=== PATIENT | female | born 1980 | race Caucasian/White ===

== ENCOUNTER 2018-01-01 10:14 | Emergency (ER) | payer OTHER, MEDICAID, SELFPAY ==
[2018-01-01 10:15] VITALS: BP 136/92; PULSE 82; RESP 18; TEMP 36.9; O2SAT 100; BMI 26.4
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
[2018-01-01 12:40] VITALS: BP 116/70; PULSE 66; RESP 20; TEMP 36.7; O2SAT 99
== END 2018-01-01 12:40 | disposition home or self-care (01) ==
PROVIDERS: Emergency Provider Emergency Medicine; Family Provider Emergency Medicine; PCP Emergency Medicine
DX: S20.212A Contusion of left front wall of thorax, initial encounter (principal); S16.1XXA Strain of muscle, fascia and tendon at neck level, initial encounter; S80.10XA Contusion of unspecified lower leg, initial encounter; S60.222A Contusion of left hand, initial encounter; V49.88XA Car occupant (driver) (passenger) injured in other specified transport accidents, initial encounter; Y92.488 Other paved roadways as the place of occurrence of the external cause; F17.210 Nicotine dependence, cigarettes, uncomplicated; F41.9 Anxiety disorder, unspecified
CPT/HCPCS: 71250; 72125; 73130; 73590; 99282

== ENCOUNTER 2018-02-04 16:10 | Emergency (ER) | payer OTHER, SELFPAY ==
[2018-02-04 16:12] VITALS: BP 139/69; PULSE 75; RESP 18; TEMP 36.6; O2SAT 100; BMI 25.8
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
--- NOTE | 2018-02-04 17:11 | XR_ITS ---
XR chest 2V HISTORY: ITS.REASON: worsening cough and wheezing p/ chest contusion ORDERING PHYSICIAN: Patrizia Coronel PATIENT AGE: 38 years COMPARISON: None available FINDINGS: The cardiomediastinal silhouette and pulmonary vascularity are within normal limits. The lungs are clear without infiltrates, suspicious nodules, or pleural effusions. No acute bony abnormalities. IMPRESSION: Negative chest, no acute finding
[2018-02-04 18:16] VITALS: BP 139/69; PULSE 75; RESP 18; TEMP 36.6; O2SAT 100
[2018-02-04 18:33] VITALS: PULSE 83; PULSE 89
== END 2018-02-04 18:20 | disposition home or self-care (01) ==
PROVIDERS: Emergency Provider Nurse Practitioner Family; Family Provider Emergency Medicine; PCP Emergency Medicine
DX: S20.212A Contusion of left front wall of thorax, initial encounter (principal); S20.211A Contusion of right front wall of thorax, initial encounter; F17.210 Nicotine dependence, cigarettes, uncomplicated; F41.8 Other specified anxiety disorders; V49.9XXA Car occupant (driver) (passenger) injured in unspecified traffic accident, initial encounter; Y92.488 Other paved roadways as the place of occurrence of the external cause
CPT/HCPCS: 71046; 96372; 99201

== ENCOUNTER → 2018-04-02 14:48 | Outpatient (CLI) | payer OTHER, MEDICAID, SELFPAY ==
--- NOTE | 2018-04-02 14:49 | US_ITS ---
US transvaginal HISTORY: ITS.REASON: US T/V- Heavy bleeding ORDERING PHYSICIAN: Yamini Major MD PATIENT AGE: 38 years Comparison: None FINDINGS: The uterus is 9 x 4 x 6 cm with a combined endometrial thickness of 14 mm. An oval area of increased echogenicity is present within the uterus measuring 12 x 10 by 5 mm consistent with a polyp.. There is a 13 mm nabothian cyst. Left ovary is 3 x 1.7 x 1.8 cm and contains a 17 mm cyst. The right ovary is 2.3 x 2.5 cm and contains a 8 mm cyst. No cul-de-sac fluid evident. IMPRESSION: Mildly bulky uterus with thickened endometrium and probable small endometrial polyp. Small bilateral ovarian cysts
== END ==
PROVIDERS: Family Provider Emergency Medicine; PCP Emergency Medicine; Visit Provider Obstetrics & Gynecology
DX: N93.9 Abnormal uterine and vaginal bleeding, unspecified (principal)
CPT/HCPCS: 76830

== ENCOUNTER → 2018-09-01 15:17 | Outpatient (CLI) | payer OTHER, MEDICAID, SELFPAY ==
--- NOTE | 2018-09-01 15:19 | US_ITS ---
US breast LT complete COMPARISON: None HISTORY: Palpable fullness left axillary region TECHNIQUE: Targeted ultrasound left axilla FINDINGS: Rather diffuse homogeneous echogenicity is seen in the area of palpable fullness consistent with normal appearing subcutaneous tissue. There is a normal-appearing node measuring 1.1 x 0.9 cm. There is no abnormal cystic or solid mass identified. IMPRESSION: Unremarkable targeted ultrasound left axilla
== END ==
PROVIDERS: Family Provider Emergency Medicine; PCP Emergency Medicine; Visit Provider Surgery
DX: L81.9 Disorder of pigmentation, unspecified (principal)
CPT/HCPCS: 76641

== ENCOUNTER 2019-02-27 11:58 | Emergency (ER) | payer OTHER, SELFPAY ==
[2019-02-27 12:10] VITALS: BP 146/92; PULSE 87; RESP 20; TEMP 36.9; O2SAT 98; BMI 27.3
--- NOTE | 2019-02-27 12:20 | HMH.EDUTC ---
[facility] [place] Clinical Impression: Breast pain, left, Rheumatoid arthritis flare Shingles Qualifiers: Herpes zoster complications: without complications Qualified Code(s): B02.9 - Zoster without complications Disposition: Home, Self-Care Condition on Discharge: Good Instructions: DI for Shingles Prescriptions: methylPREDNISolone [Medrol] 4 mg PO DIRECTED 6 Days #1 tab.ds.pk Valacyclovir HCl [Valtrex] 1,000 mg PO BID 10 Days #20 tab Referrals: Kyle Lao MD [Primary Care Provider] - Time of Disposition: 12:26 Medical Decision Making - Armin Inquiry Pt receiving controlled substance: No Vital Signs: 02/27/19 12:10 Temperature 98.4 F Temperature Source Oral Pulse Rate [Right Brachial] 87 Respiratory Rate 20 Blood Pressure [Right Arm] 146/92 H Blood Pressure Mean [Right Arm] 110 Blood Pressure Source [Right Arm] Automatic Cuff Blood Pressure Position [Right Arm] Sitting 02 Sat by Pulse Oximetry 98 Oxygen Delivery Method Room Air Orders (Tests/Meds): ED MEDICATIONS Discontinued Medications Generic Name Dose Route Start Last Admin Trade Name Marti PRN Reason Stop Dose Admin Ketorolac Tromethamine 60 mg 02/27/19 12:18 Toradol 60mg/2ml Vial IM 02/27/19 12:19 ONCE ONE [facility] [place] - General Stated complaint: RA attack on left side. swollen left breast Time Seen by Provider: 02/27/19 12:20 Mode of Arrival: Family Vehicle Source of Information: Patient Limitations: No Limitations Description of Symptoms (Recalled from Triage Doc. by RN): C/OP LEFT BREAST SWOLLEN AND BURNING AND PAINFUL TO TOUCH WITH RA FLARE IN LEFT HAND SINCE THIS AM. HAS NEVER HAD THESES SYMPTOMS WITH BREAST BEFORE HEENT Symptoms (Recalled from RN notes): No Resp Symptoms (Recalled from RN notes): No Skin Symptoms (Recalled from RN notes): Yes MS Symptoms (Recalled from RN notes): No Functional Status (Recalled from RN notes): N/A - History of Present Illness Provider Complaint: Patient has history RA. Woke up this am with pain in left arm and hand, which is fairly normal for an RA flare. Mostly resolved with ibuprofen, but has persistent pain in left breast. Left breast feels swollen, hot, and like it is burning from the inside out. Currently on no maintenance meds for RA. Onset (ago): hour(s) (8) Location: chest, left Quality: burning Consistency: constant Relieving factors: none Exacerbating factors: none Associated symptoms: denies other symptoms Treatments prior to arrival: NSAID - Related Data Home Medications Medication Instructions Recorded Confirmed buprenorphine 8 mg-naloxone 2 mg 2 film SUBLINGUAL Q24H 01/01/18 01/22/19 sublingual film Previous Rx's Medication Instructions Recorded ibuprofen 600 mg tablet 600 mg PO TID PRN #90 tab 12/02/18 buspirone 10 mg tablet 10 mg PO BID #180 tab 12/17/18 Valacyclovir HCl [Valtrex] 1,000 mg PO BID 10 Days #20 tab 02/27/19 methylPREDNISolone [Medrol] 4 mg PO DIRECTED 6 Days #1 02/27/19 tab.ds.pk Allergies Allergy/AdvReac Type Severity Reaction Status Date / Time No Known Allergies Allergy Verified 01/22/19 13:14 - Worker's Comp Is this a Worker's Comp case?: No [facility] History - Hepatitis A Screen Drug use history?: No High risk sexual behaviors?: No History of sexually transmitted infection?: No Currently employed?: No Childcare worker?: No Do you have indoor plumbing?: Yes Do you have electricity?: Yes Attestation statement:: This patient has been screened for Hepatitis A risk factors. I have reviewed the patient's past medical history: Yes Medical History: Reports:: Anxiety, Chronic Obstructive Pulmonary Disease (COPD), Depression, Hepatitis, Migraine Denies:: Cancer, Diabetes Mellitus Type 1, Diabetes Mellitus Type 2, Hyperlipidemia, Hypertension, Internal Pacemaker, Lung Disease, MRSA, Seizures Other Medical History: Reports: Anemia, Arthritis. Denies: Blood Transfusion Reaction Comment: owen BLAIR
--- NOTE | 2019-02-27 12:23 | ED_ITS ---
[facility] [place] Disposition Clinical Impression: Breast pain, left, Rheumatoid arthritis flare Shingles Qualifiers: Herpes zoster complications: without complications Qualified Code(s): B02.9 - Zoster without complications Disposition: Home, Self-Care Condition on Discharge: Good Instructions: DI for Shingles Prescriptions: methylPREDNISolone [Medrol] 4 mg PO DIRECTED 6 Days #1 tab.ds.pk Valacyclovir HCl [Valtrex] 1,000 mg PO BID 10 Days #20 tab Referrals: Kyle Lao MD [Primary Care Provider] - Time of Disposition: 12:26 Medical Decision Making - Armin Inquiry Pt receiving controlled substance: No Vital Signs: 02/27/19 12:10 Temperature 98.4 F Temperature Source Oral Pulse Rate [Right Brachial] 87 Respiratory Rate 20 Blood Pressure [Right Arm] 146/92 H Blood Pressure Mean [Right Arm] 110 Blood Pressure Source [Right Arm] Automatic Cuff Blood Pressure Position [Right Arm] Sitting 02 Sat by Pulse Oximetry 98 Oxygen Delivery Method Room Air Orders (Tests/Meds): ED MEDICATIONS Discontinued Medications Generic Name Dose Route Start Last Admin Trade Name Marti PRN Reason Stop Dose Admin Ketorolac Tromethamine 60 mg 02/27/19 12:18 Toradol 60mg/2ml Vial IM 02/27/19 12:19 ONCE ONE [facility] [place] HPI - General Stated complaint: RA attack on left side. swollen left breast Time Seen by Provider: 02/27/19 12:20 Mode of Arrival: Family Vehicle Source of Information: Patient Limitations: No Limitations Description of Symptoms (Recalled from Triage Doc. by RN): C/OP LEFT BREAST SWOLLEN AND BURNING AND PAINFUL TO TOUCH WITH RA FLARE IN LEFT HAND SINCE THIS AM. HAS NEVER HAD THESES SYMPTOMS WITH BREAST BEFORE HEENT Symptoms (Recalled from RN notes): No Resp Symptoms (Recalled from RN notes): No Skin Symptoms (Recalled from RN notes): Yes MS Symptoms (Recalled from RN notes): No Functional Status (Recalled from RN notes): N/A - History of Present Illness Provider Complaint: Patient has history RA. Woke up this am with pain in left arm and hand, which is fairly normal for an RA flare. Mostly resolved with ibuprofen, but has persistent pain in left breast. Left breast feels swollen, hot, and like it is burning from the inside out. Currently on no maintenance meds for RA. Onset (ago): hour(s) (8) Location: chest, left Quality: burning Consistency: constant Relieving factors: none Exacerbating factors: none Associated symptoms: denies other symptoms Treatments prior to arrival: NSAID - Related Data Home Medications Medication Instructions Recorded Confirmed buprenorphine 8 mg-naloxone 2 mg 2 film SUBLINGUAL Q24H 01/01/18 01/22/19 sublingual film Previous Rx's Medication Instructions Recorded ibuprofen 600 mg tablet 600 mg PO TID PRN #90 tab 12/02/18 buspirone 10 mg tablet 10 mg PO BID #180 tab 12/17/18 Valacyclovir HCl [Valtrex] 1,000 mg PO BID 10 Days #20 tab 02/27/19 methylPREDNISolone [Medrol] 4 mg PO DIRECTED 6 Days #1 02/27/19 tab.ds.pk Allergies Allergy/AdvReac Type Severity Reaction Status Date / Time No Known Allergies Aller
[2019-02-27 12:34] VITALS: BP 146/92; PULSE 87; RESP 20; TEMP 36.9; O2SAT 98
== END 2019-02-27 12:37 | disposition home or self-care (01) ==
PROVIDERS: Emergency Provider Physician Assistant; PCP Emergency Medicine
DX: N64.4 Mastodynia (principal); B02.9 Zoster without complications; F41.8 Other specified anxiety disorders; J44.9 Chronic obstructive pulmonary disease, unspecified; F17.210 Nicotine dependence, cigarettes, uncomplicated
CPT/HCPCS: 96372; 99201

== ENCOUNTER → 2019-04-09 14:22 | Outpatient (CLI) | payer OTHER, SELFPAY ==
--- NOTE | 2019-04-09 14:23 | CA_ITS ---
INDICATIONS FOR THE TEST: PROCEDURE: 2-D M-mode and color Doppler study INDICATIONS FOR THE TEST: Chest pain COPD+ Heart Murmur Tobacco Smoking+ Palpitations Fatigue Syncope Edema+ Hypertension Diabetes Mellitus Rheumatic Fever SOB WALSH Obesity Hyperlipidemia Family History HD Additional History HEPATITIS PATIENT INFORMATION HEIGHT: 63 WEIGHT:161 GENDER: Female B/P:122/80 2-D/M-MODE INTERPRETATION: 2-D MEASUREMENTS OBSERVED VALUES IN CMS Right Ventricular Dimension (RVDd) 1.3 Interventricular Septum (Thickness)(IVsd) 0.9 Left Ventricular Internal Dimensions(LVIDd) 4.9 Left Ventricular Posterior Wall (Thickness)(LVPWd) 0.8 Aortic Root 2.4 Aortic Cusp Separation 1.7 Left Atrial Dimensions (LAD) 3.4 2D 1. Left atrium is normal size, left ventricle is normal size, there is no concentric left ventricular hypertrophy, visually estimated ejection fraction of 55% with no regional wall motion abnormality. 2. The right atrium and right ventricle are normal size and contractility. 3. The aortic, mitral and tricuspid valvular grossly normal. 4. The pulmonic valve is poorly visualized. 5. No significant pericardial effusion noted. DOPPLER INTERROGATION: Doppler interrogation of the aortic, mitral and tricuspid valvular presence of mild mitral and tricuspid regurgitation, tricuspid regurgitation jet velocity is inadequate for calculation of the right ventricular systolic pressure, diastolic parameters are within normal range. CONCLUSION: 1. Normal left ventricular size, preserved left ventricular systolic function, visually estimated ejection fraction 55% with no regional wall motion abnormality, diastolic parameters are within normal range. 2. Mild mitral and tricuspid regurgitation 3. No significant pericardial effusion noted.
== END ==
PROVIDERS: PCP Emergency Medicine; Visit Provider Physician Assistant
DX: R06.00 Dyspnea, unspecified (principal); R60.9 Edema, unspecified; J44.9 Chronic obstructive pulmonary disease, unspecified; F17.200 Nicotine dependence, unspecified, uncomplicated; K75.9 Inflammatory liver disease, unspecified
CPT/HCPCS: 93306

== ENCOUNTER → 2019-09-14 14:11 | Outpatient (CLI) | payer OTHER, SELFPAY ==
--- NOTE | 2019-09-14 14:12 | MM_ITS ---
PROCEDURE: MM DIG SCREENING MAMM BI W/CAD CLINICAL INDICATION: screening There is no personal or family history of breast cancer COMPARISON: None, this is baseline exam TECHNIQUE: Standard CC and MLO images were obtained. R2 CAD reviewed. FINDINGS: Prominent heterogenic fibroglandular densities are seen in both breasts. The findings of bilateral and symmetrical. There is no suspicious lesion and no suspicious microcalcifications. IMPRESSION: Moderate diffuse breast density with no suspicious lesions seen BI-RAD Category: 1 Negative FOLLOW-UP: 1YR 1 Year Follow-up (A letter has been sent to the patient regarding results of the study.) Dictated by: Dr. Cholo Gongora MD 09/15/2019 15:[address] Cholo Gongora MD in [place] 09/15/2019 15:21
== END ==
PROVIDERS: PCP Emergency Medicine; Visit Provider Emergency Medicine
DX: Z12.31 Encounter for screening mammogram for malignant neoplasm of breast (principal)
CPT/HCPCS: 77067

== ENCOUNTER → 2019-12-31 16:37 | Outpatient (CLI) | payer OTHER, SELFPAY ==
--- NOTE | 2019-12-31 16:41 | XR_ITS ---
PROCEDURE: XR HIP LT 2-3V W/PELVIS CLINICAL INDICATION: hip pain COMPARISON: No exams were available for comparison FINDINGS: There is no acute fracture dislocation or destructive lesion. Mild osteoarthritis is seen at the left hip joint. IMPRESSION: No acute findings. Osteoarthritis left hip. Dictated by: Guerrero Beavers 01/01/2020 08:44 Electronically signed by Guerrero Beavers in [place] 01/01/2020 08:44
== END ==
PROVIDERS: PCP Emergency Medicine; Visit Provider Nurse Practitioner Family
DX: M25.552 Pain in left hip (principal)
CPT/HCPCS: 73502

== ENCOUNTER → 2020-01-11 08:40 | Outpatient (POV) | payer OTHER, SELFPAY ==
[2020-01-11 08:52] VITALS: BP 126/57; PULSE 93; RESP 18; O2SAT 98; BMI 26.5
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
== END ==
PROVIDERS: PCP Emergency Medicine; Visit Provider Clinical Nurse Specialist Family Health
DX: M46.1 Sacroiliitis, not elsewhere classified (principal)
CPT/HCPCS: 99202

== ENCOUNTER 2020-04-01 09:27 | Day surgery (SDC) | payer OTHER, SELFPAY ==
[2020-04-01 09:39] VITALS: BP 111/57; PULSE 75; RESP 18; TEMP 36.2; O2SAT 98; BMI 27.3
[2020-04-01 10:37] VITALS: BP 129/76; PULSE 75; RESP 18; O2SAT 99
[2020-04-01 10:38] VITALS: BP 130/75; PULSE 85; RESP 18; O2SAT 98
--- NOTE | 2020-04-01 10:46 | HMH.PMPROC ---
- Procedure Date: 04/01/20 Time: 10:46 Anesthesiologist:: Johnathon Kenyon MD Complications:: None Pre-procedure Diagnosis:: Sacroiliitis Post-procedure Diagnosis:: Same Indications for Procedure:: This patient is a pleasant 40-year-old white female who we are treating for bilateral hip pain. She is tender over both SI joints. She has positive SI joint compression test bilaterally. She has a positive Kedar test bilaterally. She has a positive Amanda's test bilaterally. We will do bilateral SI joint injections under fluoroscopy today to see if this will help with her pain symptoms. Procedure Details:: B/L SI joint injection under fluoroscopy Informed consent was obtained and the risks and benefits of the procedure was explained to the patient. The patient was taken to the procedure room and placed prone on the procedure table. The patient was prepped using ChloraPrep. The skin and subcutaneous tissues overlying the SI joints were anesthetized using lidocaine. I placed a 22-gauge needle first in the left SI joint and second in the right SI joint. Needle placement was confirmed with dye. After this we injected 5 mL bupivacaine 0.25% and Depo-Medrol 40 mg into each SI joint. Patient tolerated the procedure well with no complication. Plan and Disposition:: We will follow-up with her in 2 weeks. Will reevaluate her symptoms at that time.
[2020-04-01 10:55] VITALS: BP 136/83; PULSE 59; RESP 20; O2SAT 98
== END 2020-04-01 10:55 | disposition home or self-care (01) ==
LOC: SC.PAINP 09:27
PROVIDERS: PCP Emergency Medicine; Visit Provider Anesthesiology
DX: M46.1 Sacroiliitis, not elsewhere classified (principal); Z72.0 Tobacco use; J44.9 Chronic obstructive pulmonary disease, unspecified; F32.9 Major depressive disorder, single episode, unspecified; F41.9 Anxiety disorder, unspecified; D64.9 Anemia, unspecified
CPT/HCPCS: 27096; G0260; J1030; Q9966

== ENCOUNTER → 2020-04-18 15:18 | Outpatient (POV) | payer OTHER, SELFPAY ==
[2020-04-18 15:30] VITALS: BP 147/71; PULSE 65; RESP 20; O2SAT 100; BMI 26.5
--- NOTE | 2020-04-18 15:40 | HMH.PAINSOAP ---
[facility] Pain Management SOAP Note Subjective:: Patient is a very pleasant 40-year-old white female who we are treating for bilateral hip pain and SI joint pain. She has a SI joint compression test bilaterally positive she has a positive Kedar test bilaterally and a positive Amanda's test bilaterally. She is still following up after bilateral SI joint injections under fluoroscopy and has done extremely well with this. She rates 90% relief of her symptomology. She would like to repeat this to see if she can get any additional efficacy. I do believe that this would be beneficial given her symptomology. ROS General: no recent weight change, no fever, no sleep disturbances Respiratory: no cough, no shortness of air, no recurring pulmonary infections Cardiovascular/Peripheral Vascular: No chest pain, No palpitations, no edema, no shortness of breath. Gastrointestinal: no new onset incontinence, normal bowel movements reported Genitourinary: no new onset incontinence Musculoskeletal: SI joint pain Psychiatric: normal mood/ affect Neurological: [denies new onset weakness in extremities], [denies new onset balance issues] Objective:: Physical Exam General: Alert and oriented x3, no acute distress, pleasant and cooperative, [on room air] Lungs: Resps E/U, Symmetrical chest expansion, Eyes: PERRL Musculoskeletal: Flexion and extension of lumbar spine somewhat guarded secondary to pain, deep tendon reflexes normal, strength in upper and lower extremities [5/5], antalgic gait noted Neurological: speech clear, pen tender equal, no gross sensory deficits Assessment:: Sacroiliitis Plan:: We will plan on bilateral SI joint injections for the patient. Patient's been instructed to call the office if she has any issues prior to her next appointment. Dr. Kenyon has reviewed this note and agrees with this plan of care. This note was dictated using voice recognition software and may contain errors or omissions [facility] History I have reviewed the patient's past medical history: Yes Medical History: Reports:: Anxiety, Chronic Obstructive Pulmonary Disease (COPD), Depression, Hepatitis, Migraine Denies:: Cancer, Diabetes Mellitus Type 1, Diabetes Mellitus Type 2, Hyperlipidemia, Hypertension, Internal Pacemaker, Lung Disease, MRSA, Seizures *Have you ever received a pneumonia vaccine?: No *Have you received a flu vaccine this season?: Yes Other Medical History: Reports: Anemia, Arthritis. Denies: Blood Transfusion Reaction Other Surgeries: Yes: Tubal Ligation, Other (LEEP). No: Pacemaker Amputation: No Fractures: No - *Social History Smoking Status: Current every day smoker Tobacco Type: cigarettes # Packs/Day (cigarettes): 1 #Yrs smoked (if former smoker): 26 Alcohol Intake: never Substance Use Type: former substance user, painkillers *Occupational Status:: employed Housing: house Household Members: significant other *Travel in the last 8 weeks: None - Psychiatric History Pschychiatric History:: Reports:: Anxiety, Depression Family Hx:: Unable to obtain RETAIL MANAGEMENT KEYHOLDER history: Tubal Ligation, Spontaneous , Additional RETAIL MANAGEMENT KEYHOLDER History, dysfunctional uterine bleed, Abnormal Uterine Bleeding
== END ==
PROVIDERS: PCP Emergency Medicine; Visit Provider Clinical Nurse Specialist Family Health
DX: M46.1 Sacroiliitis, not elsewhere classified (principal)
CPT/HCPCS: 99212

== ENCOUNTER 2020-05-03 13:23 | Day surgery (SDC) | payer OTHER, SELFPAY ==
[2020-05-03 13:42] VITALS: BP 113/80; PULSE 80; RESP 18; TEMP 36.2; O2SAT 99; BMI 26.5
[2020-05-03 14:04] VITALS: BP 125/85; PULSE 82; RESP 18; O2SAT 98
[2020-05-03 14:05] VITALS: BP 125/85; PULSE 85; RESP 18; O2SAT 99
[2020-05-03 14:08] VITALS: BP 129/79; PULSE 72; RESP 18; O2SAT 99
--- NOTE | 2020-05-03 14:08 | P.PCN_ITS ---
- Procedure Date: 05/03/20 Time: 14:08 Anesthesiologist:: Hailee Lynn APRN Complications:: None Pre-procedure Diagnosis:: Sacroiliitis Post-procedure Diagnosis:: Same Indications for Procedure:: Patient is a very pleasant 40-year-old white female who we are treating for bilateral hip pain and SI joint pain. She is status post 1 SI joint injection and is doing extremely well. She would like to repeat this to see if she can get any additional efficacy. She rates her pain today 4 out of 10 and she does have a positive Kedar test Amanda's test and SI joint compression test bi laterally. Physical Exam General: Alert and oriented x3, no acute distress, pleasant and cooperative, [on room air] Lungs: Resps E/U, Symmetrical chest expansion, Eyes: PERRL Musculoskeletal: Flexion and extension of lumbar spine somewhat guarded secondary to pain, deep tendon reflexes normal, strength in upper and lower extremities [5/5], slightly antalgic gait noted Neurological: speech clear, non categorical preschool teacher equal, no gross sensory deficits Procedure Details:: Informed consent was obtained and the risks and benefits of the procedure were explained to the patient. Patient was taken to the procedure room. Patient was placed prone on the procedure table. The left hip was prepped using ChloraPrep as a cleansing solution. The skin and subcutaneous tissues were anesthetized using lidocaine. Using fluoroscopic guidance I placed a 22-gauge spinal needle into the inferior aspect of the left SI joint. After this I injected 5 mL bupivacaine 0.25% and Depo-Medrol 40 mg into the left SI joint. This was then repeated on the right side. The patient tolerated the procedure well with no complication. Plan and Disposition:: I will see the patient back in the office in 2 to 3 weeks reassess her symptoms at that time she has been instructed to call the office if she has any issues prior to her next appointment. Dr. Kenyon has reviewed this note and agrees with this plan of care. This note was dictated using voice recognition software and may contain errors or omissions
== END 2020-05-03 14:10 | disposition home or self-care (01) ==
LOC: SC.PAINP 13:24
PROVIDERS: PCP Emergency Medicine; Visit Provider Clinical Nurse Specialist Family Health
DX: M46.1 Sacroiliitis, not elsewhere classified (principal); Z72.0 Tobacco use; J44.9 Chronic obstructive pulmonary disease, unspecified; K59.00 Constipation, unspecified; G43.909 Migraine, unspecified, not intractable, without status migrainosus; F41.9 Anxiety disorder, unspecified; B94.8 Sequelae of other specified infectious and parasitic diseases; D64.9 Anemia, unspecified; Z79.899 Other long term (current) drug therapy
CPT/HCPCS: 27096; G0260; J1030

== ENCOUNTER → 2020-08-02 16:33 | Outpatient (CLI) | payer OTHER, SELFPAY ==
[2020-08-04 09:29] LABS: Testosterone,Total 6 ng/dL (8-48)
[2020-08-04 11:51] LABS: Estradiol 41.1 pg/mL (.); FSH 21.3 mIU/mL (.); LH 12.4 mIU/mL (.)
== END ==
PROVIDERS: Visit Provider Obstetrics & Gynecology
DX: N91.2 Amenorrhea, unspecified (principal); R68.82 Decreased libido; R23.2 Flushing
CPT/HCPCS: 36415; 82670; 83001; 83002; 84403

== ENCOUNTER 2020-08-08 14:12 | Day surgery (SDC) | payer OTHER, SELFPAY ==
[2020-08-08 14:18] VITALS: BP 126/76; PULSE 79; RESP 18; TEMP 36.7; BMI 27.3
[2020-08-08 14:39] VITALS: BP 132/85; BP 138/85; PULSE 85; RESP 18; O2SAT 98
--- NOTE | 2020-08-08 14:42 | HMH.PMPROC ---
- Procedure Date: 08/08/20 Time: 14:42 Anesthesiologist:: Hailee Lynn APRN Complications:: None Pre-procedure Diagnosis:: Sacroiliitis Post-procedure Diagnosis:: Same Indications for Procedure:: Is a very pleasant 40-year-old white female who presents today for bilateral SI joint injections. Patient gets 80% relief with her SI joint injections for 3 to 4 months. Patient is here today to repeat this. She has a positive Kedar Amanda's and SI joint compression test bilaterally. Physical Exam General: Alert and oriented x3, no acute distress, pleasant and cooperative, [on room air] Lungs: Resps E/U, Symmetrical chest expansion, Eyes: PERRL Musculoskeletal: Flexion and extension of lumbar spine somewhat guarded secondary to pain, deep tendon reflexes normal, strength in upper and lower extremities [5/5], slightly antalgic gait noted Neurological: speech clear, experimental preflight mechanic equal, no gross sensory deficits Procedure Details:: Informed consent was obtained and the risks and benefits of the procedure were explained to the patient. Patient was taken to the procedure room. Patient was placed prone on the procedure table. The left hip was prepped using ChloraPrep as a cleansing solution. The skin and subcutaneous tissues were anesthetized using lidocaine. Using fluoroscopic guidance I placed a 22-gauge spinal needle into the inferior aspect of the left SI joint. After this I injected 5 mL bupivacaine 0.25% and Depo-Medrol 40 mg into the left SI joint. It was then repeated on the right side. The patient tolerated the procedure well with no complication. Plan and Disposition:: We will see the patient back in several weeks reassess her symptoms at that time she has been instructed to call the office if she has any issues prior to next appointment. Dr. Kenyon has reviewed this note and agrees with this plan of care. This note was dictated using voice recognition software and may contain errors or omissions
[2020-08-08 14:45] VITALS: BP 140/76; PULSE 69; RESP 18; O2SAT 99
== END 2020-08-08 14:47 | disposition home or self-care (01) ==
LOC: SC.PAINP 14:13
PROVIDERS: PCP Emergency Medicine; Visit Provider Clinical Nurse Specialist Family Health
DX: M46.1 Sacroiliitis, not elsewhere classified (principal); Z72.0 Tobacco use; J44.9 Chronic obstructive pulmonary disease, unspecified; F41.9 Anxiety disorder, unspecified; F32.9 Major depressive disorder, single episode, unspecified; Z98.51 Tubal ligation status; Z98.890 Other specified postprocedural states; Z79.899 Other long term (current) drug therapy
CPT/HCPCS: 27096; G0260; J1030; Q9966

== ENCOUNTER → 2020-10-17 10:55 | Outpatient (CLI) | payer OTHER, SELFPAY ==
[2020-10-17 11:26] LABS: Adenovirus,PCR Not Detected (NotDetected); Bordetella Pertussis Not Detected (NotDetected); Chlamydophila Pneumoniae, PCR Not Detected (NotDetected); Coronavirus 19, PCR Not Detected (NotDetected); Coronavirus 229E Not Detected (NotDetected); Coronavirus NL63 Not Detected (NotDetected); Coronavirus OC43 Not Detected (NotDetected); Coronovirus HKU1,PCR Not Detected (NotDetected); Human Metapneumovirus Not Detected (NotDetected); Influenza A, PCR Not Detected (NotDetected); Influenza AH1, 2009 Not Detected (NotDetected); Influenza AH1, PCR Not Detected (NotDetected); Influenza AH3,PCR Not Detected (NotDetected); Influenza B, PCR Not Detected (NotDetected); Mycoplasma Pneumoniae, PCR Not Detected (NotDetected); Parainfluenza 1, PCR Not Detected (NotDetected); Parainfluenza 2, PCR Not Detected (NotDetected); Parainfluenza 3, PCR Not Detected (NotDetected); Parainfluenza 4, PCR Not Detected (NotDetected); Respiratory Syncytial Virus Not Detected (NotDetected); Rhinovirus/Enterovirus Not Detected (NotDetected)
== END ==
PROVIDERS: PCP Emergency Medicine; Visit Provider Emergency Medicine
DX: Z20.828 Contact with and (suspected) exposure to other viral communicable diseases (principal)
CPT/HCPCS: 87581; 87633; 87798

== ENCOUNTER 2020-10-24 14:01 | Day surgery (SDC) | payer OTHER, SELFPAY ==
[2020-10-24 14:26] VITALS: BP 111/69; PULSE 69; RESP 18; TEMP 36.2; O2SAT 97; BMI 26.5
[2020-10-24 15:13] VITALS: BP 125/74; PULSE 74; RESP 18; O2SAT 98
[2020-10-24 15:14] VITALS: BP 125/74; PULSE 76; RESP 18; O2SAT 98
--- NOTE | 2020-10-24 15:18 | HMH.PMPROC ---
- Procedure Date: 10/24/20 Time: 15:18 Anesthesiologist:: Hailee Lynn APRN Complications:: None Pre-procedure Diagnosis:: Sacroiliitis Post-procedure Diagnosis:: Sacroiliitis Indications for Procedure:: Patient is a pleasant 40-year-old white female who presents today for bilateral SI joint injections. Patient gets 80% relief for up to 3 months with her injections. Patient has a positive Kedar test Amanda's test SI joint compression test and distraction test bilaterally. Patient does well with these injections. We will move forward with a repeat today. Procedure Details:: Informed consent was obtained and the risks and benefits of the procedure were explained to the patient. Patient was taken to the procedure room. Patient was placed prone on the procedure table. The [right] hip was prepped using ChloraPrep as a cleansing solution. The skin and subcutaneous tissues were anesthetized using lidocaine. Using fluoroscopic guidance I placed a 22-gauge spinal needle into the inferior aspect of the [right] SI joint. After this I injected 5 mL bupivacaine 0.25% and Depo-Medrol 40 mg into the [right] SI joint. We then repeated this on the left side. the patient tolerated the procedure well with no complication. Plan and Disposition:: Patient back in several weeks reassess her symptoms at that time she has been instructed to call the office if she has any issues prior to her next appointment. Dr. Kenyon has reviewed this note and agrees with this plan of care. This note was dictated using voice recognition software and may contain errors or omissions
[2020-10-24 15:26] VITALS: BP 115/72; PULSE 74; RESP 18; O2SAT 98
== END 2020-10-24 15:27 | disposition home or self-care (01) ==
LOC: SC.PAINP 14:04
PROVIDERS: PCP Emergency Medicine; Visit Provider Clinical Nurse Specialist Family Health
DX: M46.1 Sacroiliitis, not elsewhere classified (principal); J44.9 Chronic obstructive pulmonary disease, unspecified; F41.9 Anxiety disorder, unspecified; F32.9 Major depressive disorder, single episode, unspecified; G43.909 Migraine, unspecified, not intractable, without status migrainosus; Z72.0 Tobacco use; Z87.19 Personal history of other diseases of the digestive system
CPT/HCPCS: 27096; G0260; J1030

== ENCOUNTER → 2020-11-29 13:01 | Outpatient (CLI) | payer OTHER, SELFPAY ==
--- NOTE | 2020-11-29 13:25 | XR_ITS ---
PROCEDURE: XR CERVICAL SPINE CLINICAL INDICATION: cervicothoracic pain COMPARISON: No exams were available for comparison FINDINGS: No fracture or dislocation. No lytic or blastic change. There is normal mineralization. The joint spaces are well-preserved. No significant degenerative/arthritic changes. No erosive changes evident. The neural foramina are patent. Other findings:There is mild prominence of the transverse processes of C7 on both sides which may function as small cervical ribs.There is normal alignment. No fracture or dislocation. No lytic or blastic change. IMPRESSION: Prominent transverse processes of C7/small cervical ribs otherwise negative cervical Dictated by: Matty Lamas MD 11/29/2020 14:06 Matty Lamas MD in [place] 11/29/2020 14:06
--- NOTE | 2020-11-29 13:25 | XR_ITS ---
PROCEDURE: XR THORACIC SPINE 2V CLINICAL INDICATION: cervicothoracic pain COMPARISON: No exams were available for comparison FINDINGS: No fracture or dislocation. No lytic or blastic change. There is normal mineralization. Normal alignment. There is minimal degenerative disc disease at T9-T10 Other findings:None. IMPRESSION: Minimal degenerative changes thoracic spine, no acute finding Dictated by: Matty Lamas MD 11/29/2020 14:08 Matty Lamas MD in [place] 11/29/2020 14:08
[2020-11-29 14:33] LABS: Basophils # 0.1 K/mm3 (0-0.2); Basophils % 1.1 % (0.1-2.0); Eosinophils # 0.1 K/mm3 (0.0-0.4); Eosinophils % 1.5 % (0.1-12.0); Hematocrit 47.3 % (37.0-47.0); Hemoglobin 15.8 g/dL (12.2-16.2); Lymphocytes # 2.1 K/mm3 (0.7-4.5); Lymphocytes % 30.2 % (10-50); Mean Corpuscular HGB Conc 33.3 g/dL (31.8-35.4); Mean Corpuscular Volume 95.9 fl (81-99); Mean Platelet Volume 10.2 fl (7.4-10.4); Monocytes # 0.5 K/mm3 (0.1-1.0); Monocytes % 6.9 % (1.7-9.3); Neutrophils # 4.3 K/mm3 (1.8-7.8); Neutrophils % 60.2 % (37.0-80.0); Platelet Count 237 K/mm3 (142-424); Red Blood Count 4.93 M/mm3 (4.20-5.40); Red Cell Distribution Width 13.2 % (11.5-17.5); White Blood Count 7.1 K/mm3 (4.8-10.8)
[2020-11-29 15:01] LABS: Alanine Aminotransferase 15 U/L (12-78); Albumin Level 4.7 g/dl (3.5-5.0); Albumin/Globulin Ratio 1.7 (1.1-1.8); Alkaline Phosphatase 70 U/L (38-126); Aspartate Amino Transferase 25 U/L (14-36); Bilirubin,Total 0.3 mg/dl (0.2-1.3); Blood Urea Nitrogen 6 mg/dl (7-17); Calcium 9.5 mg/dl (8.4-10.2); Carbon Dioxide 32 mmol/L (22.0-30.0); Chloride 102 mmol/L (98-107); Estimated Glomerular Filt Rate 79 ml/min (>60); GFR (African American) 96 ML/MIN (>60); Globulin 2.7 g/dL (1.3-3.2); Glucose 77 mg/dl (74-100); Sodium 143 mmol/L (136-145); Total Protein,Serum 7.4 g/dl (6.3-8.2)
[2020-11-29 16:47] LABS: Thyroid Stimulating Hormone 1.52 uIU/mL (0.465-4.68)
[2020-11-29 17:21] LABS: Vitamin B12 381 pg/mL (239-931)
[2020-11-29 17:26] LABS: Folate 6.09 ng/mL
== END ==
PROVIDERS: PCP Emergency Medicine; Visit Provider Specialist
DX: M54.2 Cervicalgia (principal); M54.6 Pain in thoracic spine; G43.009 Migraine without aura, not intractable, without status migrainosus; R41.3 Other amnesia; G47.8 Other sleep disorders; R40.0 Somnolence; Z68.26 Body mass index [BMI] 26.0-26.9, adult; Z72.0 Tobacco use
CPT/HCPCS: 36415; 72052; 72070; 80053; 82607; 82746; 84443; 85025; 94762

== ENCOUNTER → 2020-12-07 12:48 | Outpatient (CLI) | payer OTHER, SELFPAY ==
--- NOTE | 2020-12-07 12:48 | MR_ITS ---
PROCEDURE: MR HEAD/BRAIN WO CON CLINICAL INDICATION: eval for ENDODONTIST abnormality HEADACHES, INSOMNIA, POSTERIOR NECK PAIN. SYMPTOMS X1 MONTH COMPARISON: No exams were available for comparison TECHNIQUE: Routine multiplanar multi echo sequences are performed without gadolinium enhancement. FINDINGS: No midline shift, mass effect, intracranial hemorrhage, hydrocephalus, or acute infarction is evident. The cerebellopontine angles, cerebellum, and brainstem have an unremarkable appearance. There are few scattered T2 white matter hyperintensities noted. In the region of the supra vermian cistern extending into the ambient cistern region superior and posterior to the jorge and at the region the pineal gland there are dilated serpiginous vessels consistent with an arteriovenous malformation. Tiny salt and pepper type foci of hypointensity associated with this. This is consistent with an arteriovenous malformation. The AVM measures 2.2 cm cephalad caudad and 1.9 cm AP. It appears that this AVM enters into the vein of Jerome and into the straight sinus. The vein of Jerome is enlarged.. No evidence of acute intracranial hemorrhage. This lesion is along the posterior aspect of the 3rd ventricle and cerebral aqueduct. The lateral ventricles and 3rd ventricle is slightly prominent suggesting that this abnormality could be causing some hydrocephalus. There is impingement upon the quadrigeminal plate on the left. 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 There is some compression upon the posterior aspect of the 3rd ventricle and the cerebral aqueduct with some mild dilatation of the 3rd and lateral ventricles. Neuro surgical/neuro interventional consult suggested. Dictated by: Matty Lamas MD 12/08/2020 11:32 Matty Lamas MD in [place] 12/08/2020 11:32
== END ==
PROVIDERS: PCP Emergency Medicine; Visit Provider Specialist
DX: G43.009 Migraine without aura, not intractable, without status migrainosus (principal); G47.8 Other sleep disorders; M54.2 Cervicalgia; M54.6 Pain in thoracic spine; R40.0 Somnolence; R41.3 Other amnesia; Z68.26 Body mass index [BMI] 26.0-26.9, adult; Z72.0 Tobacco use
CPT/HCPCS: 70551

== ENCOUNTER → 2020-12-20 17:55 | Outpatient (CLI) | payer OTHER, SELFPAY | PROVIDERS: PCP Emergency Medicine; Visit Provider Emergency Medicine | DX: Z20.822 Contact with and (suspected) exposure to COVID-19 (principal) | CPT/HCPCS: U0003 ==

== ENCOUNTER → 2021-02-01 13:06 | Outpatient (POV) | payer OTHER, SELFPAY | DX: Z00.00 Encounter for general adult medical examination without abnormal findings (principal) ==

== ENCOUNTER 2021-06-26 14:06 | Day surgery (SDC) | payer OTHER, SELFPAY ==
[2021-06-26 14:13] VITALS: BP 154/79; PULSE 74; RESP 18; TEMP 37.1; O2SAT 98; BMI 25.4
--- NOTE | 2021-06-26 14:32 | HMH.PMPROC ---
- Procedure Date: 06/26/21 Time: 14:32 Anesthesiologist:: Mariel Solorzano APRN Complications:: None Pre-procedure Diagnosis:: Sacroiliitis Post-procedure Diagnosis:: Same Indications for Procedure:: She is a 41-year-old white female who presents today for sacroiliitis. She is having pain to her bilateral SI joint joints with with a positive Amanda's, compression, distraction test. Patient has had these injections in the past and does get up to 80% relief for greater than 2 to 3 weeks. She is tender to palpation to both SI joints today. We will perform bilateral SI joint injections on the patient to see if she gets relief. She rates her pain a 7 out of 10. Patient generally gets about 4 months of relief. She was unable to recently undergo injective therapy due to getting radiation. Risks and benefits of the procedure have been explained to the patient. Patient would like to proceed with the procedure. Possible side effects of corticosteroids have been discussed with the patient. Physical exam General: Alert and oriented x3, no acute distress, pleasant and cooperative, [on room air] Lungs: Respirations even and unlabored, symmetrical chest expansion Eyes: PERRL Musculoskeletal: Flexion and extension of lumbar [spine] somewhat guarded secondary to pain, strength in upper and lower extremities [5/5], [antalgic gait noted] positive Amanda's test, positive compression test, positive distraction test Neurological: Speech clear, [rail operations controller equal], no gross sensory deficit Procedure Details:: Informed consent was obtained and the risk and benefits of the procedure were explained to the patient. The patient was taken to the procedure room and noninvasive monitors were placed including noninvasive blood pressure cuff and pulse oximeter. The patient was placed prone on the procedure table. The right side joint was cleansed using chlorhexidine as a cleansing solution. C-arm fluoroscopy was used to view the right SI joint. The skin and subcutaneous tissue were anesthetized using lidocaine 1.5% and 25-gauge needle. After this a 22-gauge spinal needle was inserted under fluoroscopic guidance into the inferior aspect of the right SI joint. Omnipaque dye was injected and good spread was seen throughout the joint. After this approximately 5 mils of bupivacaine 0.25% and Depo-Medrol 40 mg were incrementally injected into the sacroiliac joint. We then proceeded to the left SI joint. The left SI joint was cleansed using chlorhexidine as a cleansing solution. C?arm fluoroscopy was used to view the left SI joint. The skin and subcutaneous tissue were anesthetized using 1.5% and 25-gauge needle. After this, a 22-gauge spinal needle was inserted under fluoroscopic guidance into the inferior aspect of the left SI joint. Omnipaque dye was injected and good spread was seen throughout the joint. After this, approximately 5 mL of bupivacaine 0.25% and Depo-Medrol 40 mg were incrementally injected into the left SI joint. the patient tolerated the procedure well with no complications. Plan and Disposition:: We will plan to see the patient back in the clinic in 2 weeks. Patient has been instructed to contact the clinic with any concerns before the next appointment. Dr. Kenyon has reviewed this note and agrees with this plan of care. This note was dictated using voice recognition software and make contain errors or omissions.
[2021-06-26 14:40] VITALS: BP 142/76; PULSE 88; RESP 18; O2SAT 98
[2021-06-26 14:41] VITALS: BP 121/87; PULSE 90; RESP 18; O2SAT 97
[2021-06-26 14:50] VITALS: BP 113/62; PULSE 74; RESP 18; O2SAT 98
== END 2021-06-26 14:51 | disposition home or self-care (01) ==
LOC: SC.PAINP 14:08
PROVIDERS: PCP Emergency Medicine; Visit Provider Clinical Nurse Specialist Family Health
DX: M46.1 Sacroiliitis, not elsewhere classified (principal); G43.909 Migraine, unspecified, not intractable, without status migrainosus; J44.9 Chronic obstructive pulmonary disease, unspecified; M19.90 Unspecified osteoarthritis, unspecified site; F32.9 Major depressive disorder, single episode, unspecified; F41.9 Anxiety disorder, unspecified; D64.9 Anemia, unspecified; Z79.899 Other long term (current) drug therapy
CPT/HCPCS: 27096; G0260; J1030; Q9966

== ENCOUNTER → 2021-11-13 18:37 | Outpatient (CLI) | payer OTHER, SELFPAY | PROVIDERS: PCP Emergency Medicine; Visit Provider Nurse Practitioner | DX: U07.1 COVID-19 (principal) | CPT/HCPCS: C9803; U0003; U0005 ==

== ENCOUNTER → 2023-09-18 14:24 | Outpatient (POV) | payer OTHER, SELFPAY ==
--- NOTE | 2023-09-18 14:45 | EXP.PAIN.SOA ---
[facility] Pain Management SOAP Note Subjective:: Patient is a pleasant 43-year-old female who presents today for follow-up. We are currently treating the patient for chronic sacroiliitis. Today she rates her pain a 5 out of 10. Patient states her pain is all in her low back along her bilateral hips and denies any new trauma or injury from the last time we saw her. Patient does state this is a aching, throbbing sensation with pressure that does radiate into her groin even. Patient does state the pain interferes with her ability to perform activities of daily living such as cooking and cleaning. She has previously had multiple SI injections that did provide significant relief of upwards of 80% or more. Patient is interested in repeating this injections. Patient has tried and failed conservative therapy such as oral medications, heat and ice, topicals, physical therapy, at home stretching exercise for longer than 12 weeks. Patient is on Suboxone therapy from an outside provider. Her Armin has been reviewed and is appropriate. Review of Systems: General: No recent weight changes, no fever, no sleep disturbances Respiratory: No cough, no shortness of air, no recurring pulmonary infections Cardiovascular/peripheral vascular: No chest pain, no palpitations, no edema, no shortness of breath Gastrointestinal: No new onset incontinence, normal bowel movements reported Genitourinary: No new onset incontinence Musculoskeletal: Low back pain, bilateral hip pain Psychiatric: [Normal mood/affect] Neurological: [Denies weakness in extremities], [denies balance issues] Objective:: Physical Exam: General: Alert and oriented x3, no acute distress, pleasant and cooperative Lungs: Respirations even and unlabored, symmetrical chest expansion Eyes: PERRL Musculoskeletal: Flexion and extension of lumbar [spine] somewhat guarded secondary to pain, [antalgic gait noted] point tenderness along bilateral SIs with positive bilateral Amanda's, Nitza's, Gaenslen's, compression and distraction exam Neurological: Speech clear, no gross sensory deficit Assessment:: Low back pain, chronic sacroiliitis Plan:: Patient is experiencing worsening pain in her low back and bilateral hips. Patient had limited range of motion of her lumbar spine along with point tenderness at her bilateral SIs and a positive bilateral Amanda's, Nitza's, Gaenslen's, compression and distraction exam. I have discussed with the patient that she may benefit from bilateral SI injections. Risk and benefits were discussed with the patient and she would like to proceed forward with this plan of care. I have also discussed with the patient due to this being a chronic issue that in the future she may be a potential candidate for a SI fusion procedure. Educational handouts were given during today's visit and we will follow-up with this at later visits. Patient will be scheduled for bilateral SI injections. Patient has been instructed to contact the clinic with any concerns before the next appointment. Dr. Kenyon has reviewed this note and agrees with this plan of care. This note was dictated using voice recognition software and make contain errors or omissions. [facility] Disclaimer: The information contained in this section may have been updated after the patient was seen, as this information can be updated by other users. 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
[2023-09-18 15:34] VITALS: BP 113/75; PULSE 72; RESP 18; O2SAT 95; BMI 27.4
== END ==
PROVIDERS: PCP Emergency Medicine; Visit Provider Nurse Practitioner Family
DX: M46.1 Sacroiliitis, not elsewhere classified (principal); G89.29 Other chronic pain; M54.50 Low back pain, unspecified
CPT/HCPCS: 99212; G0463

== ENCOUNTER 2023-10-01 11:24 | Day surgery (SDC) | payer OTHER, SELFPAY ==
[2023-10-01 11:36] VITALS: BP 157/84; PULSE 67; RESP 16; TEMP 36.2; O2SAT 100; BMI 27.8
[2023-10-01 11:53] VITALS: BP 147/71; PULSE 84; O2SAT 100
[2023-10-01 11:54] VITALS: BP 147/71; PULSE 81; O2SAT 100
[2023-10-01 11:55] VITALS: BP 139/73; PULSE 64; RESP 16; O2SAT 100
--- NOTE | 2023-10-01 12:16 | P.PCN_ITS ---
Procedure Date: 10/01/23 Time: 12:00 Anesthesiologist:: Brett Leigh CRNA Complications:: None Pre-procedure Diagnosis:: Bilateral sacroiliitis. Post-procedure Diagnosis:: Same. Indications for Procedure:: Patient is a very pleasant 43-year-old female comes our clinic today for bilateral sacroiliac joint injections. Patient has had these in the past with significant improvement terms of her overall low lumbar back pain as well as bilateral posterior hip pain. Its been over 1 year since receiving the injections. She describes her low lumbar back pain as constant, dull, aching. Patient has difficulty transitioning from sitting to standing. She rates her pain 6/10. Procedure Details:: Procedure: Bilateral sacroiliac joint injections under fluoroscopy Informed consent was obtained and the risks and benefits of the procedure were explained to the patient.~ The patient was taken to the procedure room and noninvasive monitors were placed including a noninvasive blood pressure cuff and pulse oximeter.~ The patient was placed prone on the procedure table. Both hips were cleansed using Betadine as a cleansing solution. C-arm fluoroscopy was used to view the right sacroiliac joint.~ The skin and subcutaneous tissues were anesthetized using lidocaine 1.5% and a 25-gauge needle.~ After this, a 22-gauge spinal needle was inserted under fluoroscopic guidance into the inferior aspect of the right sacroiliac joint.~ Omnipaque dye was injected and good spread was seen throughout the joint.~ After this, approximately 5 mL of bupivacaine, 0.25% and Depo-Medrol, 40 mg was incrementally injected into the right sacroiliac joint. We then moved to the left sacroiliac joint.~ The skin and subcutaneous tissues were anesthetized using lidocaine 1.5% and a 25-gauge needle.~ After this, a 22- gauge spinal needle was inserted under fluoroscopic guidance into the inferior aspect of the left sacroiliac joint.~ Omnipaque dye was injected and good spread was seen throughout the joint. After this, approximately 5 mL of bupivacaine, 0.25% and Depo-Medrol, 40 mg was incrementally injected into the left sacroiliac joint.~ The patient tolerated the procedure well with no complications. The patient was observed in the Pain Clinic and then was discharged home neurologically intact. Plan and Disposition:: Patient was discharged without incident.
== END 2023-10-01 11:55 | disposition home or self-care (01) ==
PROVIDERS: PCP Emergency Medicine; Visit Provider Nurse Anesthetist, Certified Registered
DX: M46.1 Sacroiliitis, not elsewhere classified (principal)
CPT/HCPCS: 27096; G0260; J1040

== ENCOUNTER 2023-10-15 15:05 | Emergency (ER) | payer OTHER, SELFPAY ==
--- NOTE | 2023-10-15 15:12 | CT_ITS ---
FINAL REPORT CLINICAL HISTORY: history of AVM, dizziness FINDINGS: Axial images of the head were obtained without contrast. Coronal reformatted images were also obtained.This study was performed with techniques to keep radiation doses as low as reasonably achievable (ALARA). Individualized dose reduction techniques using automated exposure control or adjustment of mA and/or kV according to the patient's size were employed. There is no evidence of intracranial hemorrhage or mass. The ventricular size is within normal limits. There is no evidence of shift of the midline structures. No abnormal extra axial fluid collection is identified. No skull abnormality is seen on the bone window images. IMPRESSION: No acute intracranial abnormality. Reviewed, Interpreted and Dictated by Wilver Pretty III, MD Transcribed by Yvonne Walker Authenticated and [facility]
--- NOTE | 2023-10-15 15:12 | CT_ITS ---
FINAL REPORT TECHNIQUE: Thin section axial CT with IV contrast supplemented with multiplanar reconstruction under CT angiogram protocol. This study was performed with techniques to keep radiation doses as low as reasonably achievable (ALARA). Individualized dose reduction techniques using automated exposure control or adjustment of mA and/or kV according to the patient''s size were employed. NASCET criteria was utilized during interpretation. CLINICAL HISTORY: history of AVM, dizziness FINDINGS: Aortic arch: Arch shows no significant narrowing. Great vessel origins are widely patent. Right carotid: No significant stenosis is seen of the cervical common or internal carotid artery. Left carotid: No significant stenosis is seen of the cervical common or internal carotid artery. Vertebral: Right vertebral artery is dominant. No significant stenosis is present. IMPRESSION: No evidence of stenosis. Reviewed, Interpreted and Dictated by Wilver Pretty III, MD Transcribed by Yvonne Walker Authenticated and [facility]
--- NOTE | 2023-10-15 15:12 | CT_ITS ---
FINAL REPORT TECHNIQUE: Thin section axial CT with IV contrast supplemented with multiplanar reconstruction under CT angiogram protocol. 3-D reconstructions were performed. This study was performed with techniques to keep radiation doses as low as reasonably achievable (ALARA). Individualized dose reduction techniques using automated exposure control or adjustment of mA and/or kV according to the patient''s size were employed. CLINICAL HISTORY: history of AVM, dizziness FINDINGS: The distal vertebral, basilar and distal internal carotid arteries have an unremarkable appearance. No aneurysm is seen. Major intracranial vessels are patent without significant stenosis. There is an area of enhancement posterior to the 3rd ventricle measuring 12 x 12 mm of uncertain etiology, may represent AVM. IMPRESSION: Area of enhancement as above, may represent AVM. MRI with contrast may be helpful. Correlation with prior study is also recommended. Reviewed, Interpreted and Dictated by Wilver Pretty III, MD Transcribed by Yvonne Walker Authenticated and [facility]
--- NOTE | 2023-10-15 15:13 | HMH.EDGENADL ---
Discharge Plan Disposition Patient Disposition: Home, Self-Care Prescriptions Prescriptions: No Action rimegepant 75 mg tablet,disintegrating 75 mg PO .COMPLEX Qty: 8 11RF Rx Instructions: 75 mg under the tongue no more then every 24 hours; max 8 per month buprenorphine-naloxone [Suboxone] 8-2 mg film 2 film SUBLINGUAL Q24H amitriptyline 10 mg tablet 20 mg PO HS 90 Days Qty: 180 3RF buspirone 10 mg tablet See Rx Instructions .ROUTE .COMPLEX Qty: 180 3RF Dose Instruction: TAKE ONE TABLET BY MOUTH 2 TIMES A DAY Rx Instructions: TAKE ONE TABLET BY MOUTH 2 TIMES A DAY propranolol 10 mg tablet 10 mg PO BID 90 Days Qty: 180 3RF Referrals Follow up/Referrals: Bibi Navarro PA [Primary Care Provider] - See instructions Activity Restrictions/Add. Instructions Additional Instructions/Restrictions: The CAT scan of your head that included angiography of your vessels did not demonstrate an acute neurovascular emergency. Specifically there is no evidence of any hemorrhaging associated with your AVM or other obvious emergent medical condition associated with that. There is some uncertainty as to what is exactly causing your dizziness if you continue to have symptoms I would recommend you follow-up with your neurologist or neurosurgeon outpatient to get an MRI. Also if you have high fevers or any other symptoms you may seek additional care but at this point no specific indication for infectious work-up. Please continue to drink fluids return with any worsening symptoms. 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 She is followed by neurosurgeon at [facility] presents today with dizziness. States she has chronic left-sided facial numbness that is unchanged from her baseline but she has had some intermittent numbness in her bilateral lower extremities denies any other neurologic symptoms including changes in vision coordination weakness etc. No headache associated with this. States she is just concerned about her AVM. Related Data Home Medications Medication Instructions Recorded Confirmed buprenorphine 8 mg-naloxone 2 mg 2 film sublingual Q24H SUBSTANCE 01/01/18 10/01/23 sublingual film (Suboxone) ABUSE Previous Rx's Medication Instructions Recorded rimegepant 75 mg disintegrating 75 mg PO .COMPLEX migraine #8 tabs 10/26/21 tablet amitriptyline 10 mg tablet 20 mg PO HS chronic headache 90 05/08/22 days #180 tabs buspirone 10 mg tablet See Rx Instructions .Route 12/11/22 .COMPLEX #180 tabs propranolol 10 mg tablet 10 mg PO BID chronic headaches 90 04/03/23 days #180 tabs Allergies Allergy/AdvReac Type Severity Reaction Status Date / Time No Known Allergies Allergy Verified 10/01/23 11:40 [facility] Disclaimer: The information contained in this section may have been updated after the patient was seen, as this information can be updated by other users. 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
[2023-10-15 15:14] VITALS: BP 142/91; PULSE 83; O2SAT 99
[2023-10-15 15:15] VITALS: BP 142/91; PULSE 77; RESP 20; TEMP 36.8; O2SAT 100; BMI 27.4
[2023-10-15 15:30] VITALS: BP 126/77; PULSE 78; O2SAT 99
[2023-10-15 15:30] LABS: Basophils # 0.1 K/mm3 (0-0.2); Basophils % 0.5 % (0.1-2.0); Eosinophils # 0.3 K/mm3 (0.0-0.4); Hematocrit 46.4 % (37.0-47.0); Hemoglobin 15.3 g/dL (12.2-16.2); Lymphocytes # 4.2 K/mm3 (0.7-4.5); Lymphocytes % 29.5 % (10-50); Mean Corpuscular HGB Conc 33.1 g/dL (31.8-35.4); Mean Corpuscular Hemoglobin 30.8 pg (27.0-31.2); Mean Corpuscular Volume 93.1 fl (81-99); Mean Platelet Volume 10.4 fl (7.4-10.4); Monocytes # 0.7 K/mm3 (0.1-1.0); Neutrophils # 9.1 K/mm3 (1.8-7.8); Platelet Count 206 K/mm3 (142-424); Red Blood Count 4.99 M/mm3 (4.20-5.40); Red Cell Distribution Width 12.5 % (11.5-17.5); White Blood Count 14.4 K/mm3 (4.8-10.8)
[2023-10-15 15:40] LABS: Alanine Aminotransferase 23 U/L (12-78); Alkaline Phosphatase 62 U/L (38-126); Aspartate Amino Transferase 30 U/L (14-36); Bilirubin,Total 0.3 mg/dl (0.2-1.3); Blood Urea Nitrogen 16 mg/dl (7-17); Carbon Dioxide 31 mmol/L (22.0-30.0); Chloride 102 mmol/L (98-107); Creatinine Clearance Estimated 80 mL/min (50-200); Estimated Glomerular Filt Rate 60 ml/min (>60); GFR (African American) 73 ML/MIN (>60)
[2023-10-15 15:41] LABS: Glucose 108 mg/dl (74-100)
--- NOTE | 2023-10-15 16:00 | PC.NURSE ---
pt to ct
[2023-10-15 16:09] LABS: Sodium 142 mmol/L (136-145)
[2023-10-15 16:12] LABS: Albumin Level 4.7 g/dl (3.5-5.0); Albumin/Globulin Ratio 1.5 (1.1-1.8); Calcium 8.7 mg/dl (8.4-10.2); Globulin 3.2 g/dL (1.3-3.2); Total Protein,Serum 7.9 g/dl (6.3-8.2)
--- NOTE | 2023-10-15 16:21 | PC.NURSE ---
pt arrived back to room from ct
[2023-10-15 16:25] LABS: Microscopic, Urine URINE MICROSCOPIC (MICROSCOPIC)
[2023-10-15 16:30] VITALS: BP 128/71; PULSE 82; O2SAT 99
[2023-10-15 17:18] VITALS: BP 127/76; PULSE 81; RESP 20; TEMP 36.8; O2SAT 96
[2023-10-15 17:47] LABS: Appearance,Urine CLEAR (Clear); Bilirubin,Urine Negative (Negative); Blood, Urine Negative (Negative); Color,Urine YELLOW (Yellow); Glucose,Urine (UA) Negative (Negative); Ketones,Urine Negative (Negative); Leukocyte Esterase,Urine 1+ (Negative); Nitrate,Urine Negative (Negative); PH,Urine 6.5 (5.0-8.5); Protein,Urine Negative (Negative); Specific Gravity, Urine <= 1.005 (1.005-1.030); Urobilinogen,Urine 0.2 EU/dl (0.2)
[2023-10-15 18:07] LABS: Bacteria,Urine Trace /lpf; Squamous Epithelial Cell,Urine Occasional #/hpf (0-5)
--- NOTE | 2023-10-20 15:54 | PC.NURSE ---
urine results show escherichia coli with 50,000-1000,000 colony, contacted pt who states she has improved and denies any urinary sx. Per no further action
== END 2023-10-15 17:19 | disposition home or self-care (01) ==
PROVIDERS: Emergency Provider Student in an Organized Health Care Education/Training Program; PCP Physician Assistant
DX: Q28.2 Arteriovenous malformation of cerebral vessels (principal); R42 Dizziness and giddiness; R20.0 Anesthesia of skin
CPT/HCPCS: 70450; 70496; 70498; 80053; 81001; 85025; 87086; 96360; 99285; Q9967

== ENCOUNTER 2023-12-24 13:02 | Day surgery (SDC) | payer OTHER, BC, SELFPAY ==
[2023-12-24 13:18] VITALS: BP 126/65; PULSE 82; PULSE 83; RESP 18; O2SAT 100
[2023-12-24] MEDS: BUPIVACAINE 0.25% 10ML INJ 25 MG IJ (13:20)
[2023-12-24] MEDS: methylPREDNISolone ACETATE 80MG/ML VIAL 80 MG (13:20)
[2023-12-24] MEDS: LIDOCAINE 1% 5ML PF VIAL 5 ML (13:20)
[2023-12-24 13:22] VITALS: BP 131/88; PULSE 74; RESP 18; TEMP 36.3; O2SAT 98; BMI 27.8
[2023-12-24 13:28] VITALS: BP 125/76; PULSE 68; RESP 18; O2SAT 98
--- NOTE | 2023-12-24 13:31 | P.PCN_ITS ---
Procedure Date: 12/24/23 Time: 13:20 Anesthesiologist:: Brett eLigh CRNA Complications:: None Pre-procedure Diagnosis:: Bilateral sacroiliitis Post-procedure Diagnosis:: Same. Indications for Procedure:: Patient is a pleasant 43-year-old female comes to clinic today for bilateral sacroiliac joint injection. Patient has had 6 to 8 months of significant improvement following bilateral sacroiliac joint injections in the past. Patient has extreme point tenderness over the bilateral sacroiliac joint upon examination. Patient reports difficulty transitioning from sitting to standing. Ambulation increases pain significantly. She rates her pain 8/10. Procedure Details:: Procedure: Bilateral sacroiliac joint injections under fluoroscopy Informed consent was obtained and the risks and benefits of the procedure were explained to the patient.~ The patient was taken to the procedure room and noninvasive monitors were placed including a noninvasive blood pressure cuff and pulse oximeter.~ The patient was placed prone on the procedure table. Both hips were cleansed using Betadine as a cleansing solution. C-arm fluoroscopy was used to view the right sacroiliac joint.~ The skin and subcutaneous tissues were anesthetized using lidocaine 1.5% and a 25-gauge needle.~ After this, a 22-gauge spinal needle was inserted under fluoroscopic guidance into the inferior aspect of the right sacroiliac joint.~ Omnipaque dye was injected and good spread was seen throughout the joint.~ After this, approximately 5 mL of bupivacaine, 0.25% and Depo-Medrol, 40 mg was incrementally injected into the right sacroiliac joint. We then moved to the left sacroiliac joint.~ The skin and subcutaneous tissues were anesthetized using lidocaine 1.5% and a 25-gauge needle.~ After this, a 22- gauge spinal needle was inserted under fluoroscopic guidance into the inferior aspect of the left sacroiliac joint.~ Omnipaque dye was injected and good spread was seen throughout the joint. After this, approximately 5 mL of bupivacaine, 0.25% and Depo-Medrol, 40 mg was incrementally injected into the left sacroiliac joint.~ The patient tolerated the procedure well with no complications. The patient was observed in the Pain Clinic and then was discharged home neurologically intact. Plan and Disposition:: Patient was discharged without incident.
== END 2023-12-24 13:28 | disposition home or self-care (01) ==
LOC: SC.PAINP 13:03
PROVIDERS: PCP Physician Assistant; Visit Provider Nurse Anesthetist, Certified Registered
DX: M46.1 Sacroiliitis, not elsewhere classified (principal)
CPT/HCPCS: 27096; G0260; J1040

== ENCOUNTER 2024-01-13 18:10 | Outpatient (CLI) | payer OTHER, BC, SELFPAY ==
[2024-01-13 17:50] LABS: Coronavirus 19, PCR Not Detected (NotDetected); Influenza A, PCR Not Detected (NotDetected); Influenza B, PCR Not Detected (NotDetected)
== END 2024-01-13 23:59 ==
LOC: LAB.DROPOF 18:11
PROVIDERS: Visit Provider Family Medicine
DX: J06.9 Acute upper respiratory infection, unspecified (principal); R05.9 Cough, unspecified; R09.89 Other specified symptoms and signs involving the circulatory and respiratory systems; R07.0 Pain in throat
CPT/HCPCS: 87636

== ENCOUNTER 2024-08-03 13:11 | Outpatient (CLI) | payer BC, SELFPAY ==
--- NOTE | 2024-08-03 13:16 | MM_ITS ---
PROCEDURE INFORMATION: Exam: MG Bilateral Screening 3D Mammography Exam date and time: 08/03/2024 1:11 PM Age: 44 years old Clinical indication: Screening examination TECHNIQUE: Imaging protocol: Bilateral Screening tomosynthesis and 2D mammography including computer-aided detection (CAD) when performed. COMPARISON: 1. MG MM DIG SCREENING MAMM BI W/CAD 09/14/2019 2:23 PM 2. BREASTLT US breast LT complete 09/01/2018 3:26 PM FINDINGS: MAMMOGRAPHY: Breast composition: The breasts are heterogeneously dense, which may obscure small masses. Mass: None. Architectural distortion: None. Calcifications: No suspicious calcifications. Asymmetric density: None. Skin thickening: None. Axillary adenopathy: None. IMPRESSION: No mammographic evidence of malignancy. Annual screening is recommended unless otherwise clinically indicated. ASSESSMENT: BI-RADS Category 1: Negative.
--- NOTE | 2024-08-03 15:57 | XR_ITS ---
FINAL REPORT CLINICAL HISTORY: LBP ....LEFT HIP PAIN FINDINGS: LUMBAR SPINE 5 views were obtained. There is no acute fracture. Vertebrae are normal height. There is no malalignment. The disc spaces are preserved. There is no soft tissue abnormality. IMPRESSION: No acute bony abnormality. Reviewed, Interpreted and Dictated by Spring Leblanc MD Transcribed by Niharika Olvera Authenticated and [facility]
== END 2024-08-03 23:59 | disposition home or self-care (01) ==
PROVIDERS: PCP Nurse Practitioner Family; Visit Provider Nurse Practitioner Family
DX: Z12.31 Encounter for screening mammogram for malignant neoplasm of breast (principal); M25.552 Pain in left hip; M54.50 Low back pain, unspecified
CPT/HCPCS: 72110; 77063; 77067

== ENCOUNTER 2024-08-03 14:50 | Outpatient (POV) | payer BC, SELFPAY ==
--- NOTE | 2024-08-03 | XR_ITS ---
FINAL REPORT CLINICAL HISTORY: lower back pain & left hip pain COMPARISON: None FINDINGS: SACROILIAC JOINTS SERIES Three views were obtained. There is no acute fracture or dislocation. There is mild degenerative change of the bilateral SI joints. There is no evidence of ankylosis or erosion. The visualized bony structures are well aligned. No soft tissue abnormality is seen. IMPRESSION: Degenerative change without acute bony abnormality. Reviewed, Interpreted and Dictated by Spring Leblanc MD Transcribed by Rachael Tovar Authenticated and [facility]
--- NOTE | 2024-08-03 | XR_ITS ---
FINAL REPORT CLINICAL HISTORY: lower back pain & hip pain FINDINGS: LEFT HIP 2 views were obtained. There is no acute fracture or dislocation. There are moderate degenerative changes. There is no soft tissue abnormality. IMPRESSION: Moderate degenerative changes without acute bony abnormality. Reviewed, Interpreted and Dictated by Spring Leblanc MD Transcribed by Niharika Olvera Authenticated and [facility]
[2024-08-03 15:27] VITALS: BP 137/68; PULSE 78; RESP 18; O2SAT 100; BMI 27.8
--- NOTE | 2024-08-03 16:30 | A.OFFVIS_ITS ---
[facility] Disclaimer: The information contained in this section may have been updated after the patient was seen, as this information can be updated by other users. 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 Today she rates her pain a 7 out of 10. Patient states the pain is all in her left hip and denies any new injury or trauma. Patient did last have bilateral SI injections back in December that she does state provided at least 80% improvement if not more and that the right has continued to provide coverage however the left is back at its baseline. Patient does describe it as an aching, throbbing sensation with pressure all in her left hip. Patient denies a ny radiating symptoms down into her lower extremities. Patient does state the pain is severe and is interfering with her ability to perform activities of daily living such as cooking and cleaning. Patient has tried and failed conservative therapy including continued at home stretching exercise for longer than 12 weeks between injections. Patient does feel like her left hip will pop and move out of place causing her to almost fall. Patient denies any recent imaging. Her Armin has been reviewed and is appropriate. Review of Systems: General: No recent weight changes, no fever, no sleep disturbances Respiratory: No cough, no shortness of air, no recurring pulmonary infections Cardiovascular/peripheral vascular: No chest pain, no palpitations, no edema, no shortness of breath Gastrointestinal: No new onset incontinence, normal bowel movements reported Genitourinary: No new onset incontinence Musculoskeletal: Low back pain, left hip pain Psychiatric: [Normal mood/affect] Neurological: [Denies weakness in extremities], [denies balance issues] Pain at rest (0-10 scale): 7 Objective Objective:: Physical Exam: General: Alert and oriented x3, no acute distress, pleasant and cooperative Lungs: Respirations even and unlabored, symmetrical chest expansion Eyes: PERRL Musculoskeletal: Flexion and extension of lumbar [spine] somewhat guarded secondary to pain, [antalgic gait noted] point tenderness along left SI with positive left Amanda's, Nitza's, Gaenslen's, compression and distraction exam Neurological: Speech clear, no gross sensory deficit Has patient had previous pain injection?: No Conservative treatment options previously tried: Home exercise plan Length of treatment: Longer than 12 weeks Meds Home Medications and Allergies Home Medications ?Medication ?Instructions ?Recorded ?Confirmed ?Type buprenorphine 8 mg-naloxone 2 mg 2 film sublingual Q24H SUBSTANCE 01/01/18 08/03/24 History sublingual film (Suboxone) ABUSE propranolol 10 mg tablet 10 mg PO BID chronic headaches 90 04/03/23 08/03/24 Rx days #180 tabs amitriptyline 10 mg tablet 20 mg (2 x 10 mg) PO HS chronic 12/25/23 08/03/24 Rx headache 90 days #180 tabs vrpymzydjroyevn-aoydcjexlzgigwz-XA 10 ml PO Q6H #118 mL 01/13/24 08/03/24 Rx 2 mg-30 mg-10 mg/5 mL oral syrup (Bromfed DM) buspirone 10 mg tablet See Rx Instructions .Route 02/05/24 08/03/24 Rx .COMPLEX #180 tabs New Prescriptions to Start Prescriptions: Allergies Allergy/AdvReac Type Severity Reaction Status Date / Time No Known Allergies Allergy Verified 01/15/24 14:25 Assessment and Plan *Assessment and plan (1) Sacroiliitis: Status: Chronic Category: Medical Code(s): M46.1 - Sacroiliitis, not elsewhere classified Plan Patient is experiencing worsening pain all along her low back and left hip with limited range of motion. Patient did have extreme point tenderness along her left SI with a positive left Amanda's, Nitza's, Gaenslen's, compression and distraction exam. I did discuss with the patient that she may benefit from a left SI injection. Risk and benefits were discussed with the patient and she would like to proceed forward with this plan of care. Patient has tried and failed conservative therapy including continued at home stretching exercise for longer than 12 weeks. I will also order updated x-ray imaging of her lumbar spine, left sacroiliac joint and left hip. Patient will be scheduled for a left SI injection under fluoroscopy. Patient has been instructed to contact the clinic with any concerns before the next appointment. Dr. Kenyon has reviewed this note and agrees with this plan of care. This note was dictated using voice recognition software and make contain errors or omissions. All injections are used with Lidocaine or Bupivacaine and Depo Medrol.
== END 2024-08-03 23:59 | disposition home or self-care (01) ==
LOC: SC.PAIN 14:51
PROVIDERS: PCP Nurse Practitioner Family; Visit Provider Nurse Practitioner Family
DX: M46.1 Sacroiliitis, not elsewhere classified (principal); Z73.89 Other problems related to life management difficulty
CPT/HCPCS: 72202; 73502; 99212; G0463

== ENCOUNTER 2024-09-01 13:08 | Day surgery (SDC) | payer BC, SELFPAY ==
[2024-09-01 13:33] VITALS: BP 138/67; PULSE 82; RESP 16; O2SAT 100; BMI 27.8
[2024-09-01] MEDS: LIDOCAINE 1% 5ML PF VIAL 5 ML (13:43)
[2024-09-01] MEDS: BUPIVACAINE 0.25% 10ML INJ 25 MG IJ (13:43)
[2024-09-01] MEDS: methylPREDNISolone ACETATE 80MG/ML VIAL 80 MG (13:43)
[2024-09-01 13:44] VITALS: BP 144/85; PULSE 80; RESP 18; O2SAT 100
[2024-09-01 13:45] VITALS: BP 144/85; PULSE 83; RESP 18; O2SAT 100
--- NOTE | 2024-09-01 13:56 | EXP.PAIN.PRO ---
Procedure Date: 09/01/24 Time: 13:50 Anesthesiologist:: Brett Leigh CRNA Complications:: None Pre-procedure Diagnosis:: Left sacroiliitis Post-procedure Diagnosis:: Same Indications for Procedure:: Patient is a pleasant 44-year-old female who comes our clinic today for a left sacroiliac joint injection of cortisone and local anesthetic. Upon examination she has extreme point tenderness over the left sacroiliac joint. She reports having low lumbar back pain off the midline to the left. Left posterior hip pain. Difficulty transitioning from sitting to standing. She rates her pain 7/10. Procedure Details:: Procedure: Left sacroiliac injection under fluoroscopy Informed consent was obtained and the risk and benefits of the procedure were explained to the patient.~ The patient was taken to the procedure room and noninvasive monitors were placed including noninvasive blood pressure cuff and pulse oximeter.~ The patient was placed prone on the procedure table.~ The~ left hip was cleansed using Betadine as a cleansing solution.~ C-arm fluorosocpy was used to view the left SI joint.~ The skin and subcutaneous tissues were anesthetized using Lidocaine 1.5% and a 25-gauge needle.~ After this, a 22-gauge spinal needle was inserted under fluoroscopic guidance into the inferior aspect of the left SI joint.~ Omnipaque dye was injected and a good spread was seen throughout the joint.~ After this, approximately 5 mL of bupivacaine 0.25% and Depo-Medrol 40 mg was incrementally injected into the sacroiliac joint.~ The patient tolerated the procedure well with no complications.~ The patient was observed in the Pain Clinic for a period of 30-45 minutes, then discharged home neurologically intact.~ Plan and Disposition:: Patient was discharged without incident.
[2024-09-01 14:06] VITALS: BP 99/76; PULSE 79; RESP 16; O2SAT 97
== END 2024-09-01 14:06 | disposition home or self-care (01) ==
PROVIDERS: PCP Nurse Practitioner Family; Visit Provider Nurse Anesthetist, Certified Registered
DX: M46.1 Sacroiliitis, not elsewhere classified (principal)
CPT/HCPCS: 27096; G0260; J1010

== ENCOUNTER 2024-11-27 08:21 | Emergency (ER) | payer BC, SELFPAY ==
[2024-11-27] VITALS (11 sets, daily range): BP systolic 115–156; BP diastolic 64–100; PULSE 76–103; RESP 12–20; TEMP 36.6–37.1; O2SAT 98–100; BMI 25.7
--- NOTE | 2024-11-27 08:22 | XR_ITS ---
FINAL REPORT CLINICAL HISTORY: fall, ankle/knee injury COMPARISON: None FINDINGS: 2 views of the right tibia/fibula were obtained. There is a severely comminuted trimalleolar fracture with moderate displacement. Dorsal dislocation is noted. The proximal tibia/fibula are unremarkable. The joint spaces are intact. There is no soft tissue abnormality. IMPRESSION: Trimalleolar fracture as above. Reviewed, Interpreted and Dictated by Spring Leblanc MD Transcribed by Rachael Tovar Authenticated and [facility]
--- NOTE | 2024-11-27 08:22 | XR_ITS ---
FINAL REPORT CLINICAL HISTORY: fall, ankle/knee injury COMPARISON: None FINDINGS: 2 views of the right foot were obtained. There is no acute fracture or dislocation seen of the foot. The joint spaces are intact. There is no soft tissue abnormality. IMPRESSION: No acute findings of the foot. Reviewed, Interpreted and Dictated by Spring Leblanc MD Transcribed by Rachael Tovar Authenticated and [facility]
--- NOTE | 2024-11-27 08:22 | XR_ITS ---
FINAL REPORT CLINICAL HISTORY: fall, ankle/knee injury COMPARISON: None FINDINGS: RIGHT KNEE 3 views of the right knee were obtained. There is no acute fracture or dislocation. Visualized joint spaces are normally aligned. Soft tissues are unremarkable. IMPRESSION: No acute bony abnormality. Reviewed, Interpreted and Dictated by Spring Leblanc MD Transcribed by Rachael Tovar Authenticated and [facility]
--- NOTE | 2024-11-27 08:22 | XR_ITS ---
FINAL REPORT CLINICAL HISTORY: fall, ankle/knee injury COMPARISON: None FINDINGS: LEFT KNEE 3 views of the left knee were obtained. There is no acute fracture or dislocation. Visualized joint spaces are normally aligned. Soft tissues are unremarkable. IMPRESSION: No acute bony abnormality. Reviewed, Interpreted and Dictated by Spring Leblanc MD Transcribed by Rachael Tovar Authenticated and [facility]
--- NOTE | 2024-11-27 08:22 | XR_ITS ---
FINAL REPORT CLINICAL HISTORY: fall, ankle/knee injury COMPARISON: None FINDINGS: RIGHT ANKLE 3 views of the right ankle were obtained. There is a severely comminuted trimalleolar fracture with moderate displacement. Dorsal dislocation is noted. Visualized joint spaces are normally aligned. Soft tissues are unremarkable. IMPRESSION: Trimalleolar fracture as above. Reviewed, Interpreted and Dictated by Spring Leblanc MD Transcribed by Rachael Tovar Authenticated and [facility][1]
--- NOTE | 2024-11-27 08:24 | ED_ITS ---
Discharge Plan Disposition Patient Disposition: Xfer Short-Term Hosp Chief Complaint: Extremity Injury, Lower Prescriptions Prescriptions: No Action buprenorphine-naloxone [Suboxone] 8-2 mg film 2 film SUBLINGUAL Q24H [id number]-gtlihjqaw-WK [Bromfed DM] 2-30-10 mg/5 mL syrup 10 ml PO Q6H Qty: 118 0RF propranolol 10 mg tablet 10 mg PO BID 90 Days Qty: 180 3RF amitriptyline 10 mg tablet 20 mg PO HS 90 Days Qty: 180 3RF buspirone 10 mg tablet See Rx Instructions .ROUTE .COMPLEX Qty: 180 3RF Dose Instruction: TAKE ONE TABLET BY MOUTH 2 TIMES A DAY Rx Instructions: TAKE ONE TABLET BY MOUTH 2 TIMES A DAY prednisone 20 mg tablet 20 mg PO BID Qty: 10 0RF Referrals Follow up/Referrals: Yesica Dominique APRN [Primary Care Provider] - See instructions Clinical Impressions Clinical Impression: Closed trimalleolar fracture of ankle Print Language Print Language: Swedish Discharge ED Provider: Sae Zelaya General Adult HPI General Chief complaint: Extremity Injury, Lower Stated complaint: FALL/RT ANKLE INJURY Time Seen by Provider: 11/27/24 08:22 Mode of Arrival: EMS Source of Information: Patient Limitations: No Limitations History of Present Illness HPI narrative: This is a 44-year-old female who presents with a right ankle injury. States that she was walking after her car whenever she slipped on some ice and injured her right ankle. States she felt a pop. Also landed on her knees. Denies hitting her head or loss of consciousness. Related Data Home Medications ?Medication ?Instructions ?Recorded ?Confirmed buprenorphine 8 mg-naloxone 2 mg 2 film sublingual Q24H SUBSTANCE 01/01/18 09/01/24 sublingual film (Suboxone) ABUSE Previous Rx's ?Medication ?Instructions ?Recorded propranolol 10 mg tablet 10 mg PO BID chronic headaches 90 04/03/23 days #180 tabs amitriptyline 10 mg tablet 20 mg (2 x 10 mg) PO HS chronic 12/25/23 headache 90 days #180 tabs xcacdwlgxyhqwic-outtzudcyxszrmj-VG 10 ml PO Q6H #118 mL 01/13/24 2 mg-30 mg-10 mg/5 mL oral syrup (Bromfed DM) buspirone 10 mg tablet See Rx Instructions .Route 02/05/24 .COMPLEX #180 tabs prednisone 20 mg tablet 20 mg PO BID #10 tabs 08/05/24 Allergies Allergy/AdvReac Type Severity Reaction Status Date / Time No Known Allergies Allergy Verified 01/15/24 14:25 [facility] Disclaimer: The information contained in this section may have been updated after the patient was seen, as this information can be updated by other users. 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 current occupational exposures/hazards: No caffeine: Yes Have you lived/traveled outside [place] in past 30 days?: No Contact w/someone who lives/traveled outside [place] past 30 days?: No Exposure to someone with infectious disease in past 14 days?: No Do you have a fever (greater than 100.4 F or 38 C)?: No Have you tested positive for COVID-19: No Exposed to someone with COVID-19 in past 14 days?: No Do you have a sore throat?: No Do you have a cough?: No Do you have any weakness?: No Do you have any diarrhea?: No Are you experiencing any unusual bleeding?: No Do you have any muscle aches/pain?: Yes Do you have any abdominal pain?: No Are you experiencing loss of taste or smell?: No Other Medical History Have you received the Flu Vaccine for this season: No Have you received the Pneumonia Vaccine: No ROS Obtained: Yes All systems reviewed & no additional complaints except as documented Physical Exam General General appearance: alert and in no apparent distress Head Head exam: atraumatic, normocephalic and normal inspection Eye Eye exam: Present normal appearance, PERRL and EOMI Neck Neck exam: Present normal inspection; Absent tenderness Chest Chest inspection: Present normal inspection; Absent tenderness Respiratory Respiratory exam: Present normal lung sounds bilaterally; Absent respiratory distress Cardiovascular Cardiovascular exam: Present regular rate and normal rhythm Abdominal Exam Abdominal exam: Present soft and distention; Absent tenderness, guarding or rebound Extremities Exam Extremities exam: Present normal inspection Expanded Lower Extremity Exam Right: Comment: Tenderness and deformity to the right ankle. Neurovascular intact distally. Tenderness to bilateral knees Neurological Exam Neurological exam: Present alert and oriented X3 Skin Skin exam: Present warm and dry Medical Decision Making Medical Records Medical records reviewed: Yes I reviewed the patient's medical records. Screening: Per USPSTF and CDC recommendations, given the prevalence of disease in our region, it is our hospital?s policy to screen for HIV and viral Hepatitis for all patients aged 18 and over and those with ongoing risk factors. Armin Inquiry Pt receiving controlled substance: No Vital Signs: 11/27/24 08:21 11/27/24 08:45 11/27/24 08:56 Temperature 98.2 F Temperature Source Oral Pulse Rate 81 85 Pulse Rate [Right] 85 Respiratory Rate 20 13 12 Blood Pressure 135/71 135/71 Blood Pressure [Right Arm] 156/100 H Blood Pressure Mean [Right Arm] 118 Blood Pressure Source [Right Arm] Automatic Cuff 02 Sat by Pulse Oximetry 98 100 100 Oxygen Delivery Method Room Air Room Air Oxygen Flow Rate (LPM) 11/27/24 09:00 11/27/24 09:30 11/27/24 10:00 Temperature Temperature Source Pulse Rate 78 76 87 Pulse Rate [Right] Respiratory Rate 13 12 13 Blood Pressure 124/76 119/79 Blood Pressure [Right Arm] Blood Pressure Mean [Right Arm] Blood Pressure Source [Right Arm] 02 Sat by Pulse Oximetry 100 98 99 Oxygen Delivery Method Room Air Room Air Nasal Cannula Oxygen Flow Rate (LPM) 2 11/27/24 10:23 11/27/24 10:25 11/27/24 10:30 Temperature 98.8 F Temperature Source Oral Pulse Rate Pulse Rate [Right] 87 103 H 86 Respiratory Rate 20 17 17 Blood Pressure Blood Pressure [Right Arm] 137/74 135/87 144/90 H Blood Pressure Mean [Right Arm] 95 103 108 Blood Pressure Source [Right Arm] Automatic Cuff 02 Sat by Pulse Oximetry 98 100 100 Oxygen Delivery Method Nasal Cannula Nasal Cannula Nasal Cannula Oxygen Flow Rate (LPM) 2 2 2 Lab Data Lab Results 11/27/24 08:34: HCV Ab MARION w/Rflx PCR Qn Reactive, HIV Ag/Ab Combo Qual Negative Orders (Tests/Meds): ED MEDICATIONS Discontinued Medications Generic Name Dose Route Start Last Admin Trade Name Freq PRN Reason Stop Dose Admin Hydromorphone HCl 1 mg 11/27/24 08:22 11/27/24 08:40 Hydromorphone 2mg/Ml Syringe IV 11/27/24 08:23 1 mg ONCE STA Administration Ketamine HCl 20 mg 11/27/24 09:18 11/27/24 10:22 Ketamine 50mg/1ml Syringe IV 11/27/24 09:19 20 mg ONCE ONE Administration Lidocaine/Epinephrine 10 ml 11/27/24 09:59 11/27/24 10:18 Lidocaine 1% W/Epi 1:100,000 20ml Vial IJ 11/27/24 10:00 10 ml ONCE ONE Administration Ondansetron HCl 4 mg 11/27/24 10:02 11/27/24 10:18 Ondansetron 4mg/2ml Vial IV 11/27/24 10:03 4 mg ONCE ONE Administration ORDERS Category Date Time Status Ankle XR -Right minimum 3 Views [XR ankle RT min 3V] Exams 11/27/24 08:22 Completed Stat Foot XR right 2 views [XR foot RT 2V] Stat Exams 11/27/24 08:22 Completed XR ankle RT 2V Stat Exams 11/27/24 10:30 Taken XR knee LT 3V Stat Exams 11/27/24 08:22 Completed XR knee RT 3V Stat Exams 11/27/24 08:22 Completed XR tibia fibula RT 2V Stat Exams 11/27/24 08:22 Completed HCV RNA PCR, Quant Stat Lab 11/27/24 08:34 Received HIV Combo Stat Lab 11/27/24 08:34 Completed Hepatitis C Ab Qual. W/ RFX Stat Lab 11/27/24 08:34 Completed Medical Decision Narrative: In summary, this 44-year-old female presents to the emergency department today with right ankle injury. On initial evaluation patient is afebrile, nontoxic- appearing, tender to the right ankle without any other injuries. Differential diagnosis includes but is not limited to sprain, dislocation, fracture. Based on these concerns, I ordered x-ray imaging of bilateral knees, right tib-fib, ankle, foot. Patient received Dilaudid for treatment. XR personally interpreted demonstrates trimalleolar ankle fracture. Attempted reduction and splinting with hematoma block and pain dose ketamine. Repeat x-rays reveal no significant improvement. Discussed with orthopedist who stated the patient would need to be transferred to higher level of care for more immediate treatment. Offered BLS transport to patient, however she stated that she preferred to go POV with her significant other driving her. Pain was under control and patient had no other injuries. Patient was ultimately transferred to for further evaluation via POV. Remained stable throughout her stay in the emergency department. Procedures Orthopedic Fracture Reduction Fracture #1: Side: right Fracture Reduction Location: other (ankle trimalleolar) Analgesia: hematoma block and other (pain dose ketamine) Technique: direct manipulation and traction/counter-traction Post Reduction X-rays Demonstrate: other (no significant improvement) Post-reduction neuro exam: no change Post-reduction vascular exam: no change Splint Applied: Yes Patient Tolerated Procedure: no complications Orthopedic Splinting/Casting Injury #1: Side: right Lower Extremity Injury Location: ankle Lower Extremity Immobilizer: posterior splint and stirrup splint Post Cast/Splinting Neuro Status: no change Post Cast/Splinting Vasc Status: no change Critical Care Critical Care Time Critical Care Time: No
[2024-11-27] MEDS: HYDROMORPHONE 2MG/ML SYRINGE 1 MG IV (08:40)
--- NOTE | 2024-11-27 08:44 | PC.NURSE ---
xr at bedside
--- NOTE | 2024-11-27 08:49 | PC.NURSE ---
XRAY AT BS
--- NOTE | 2024-11-27 10:12 | PC.NURSE ---
at for procedure
[2024-11-27 10:13] LABS: HIV Combo NEGATIVE (Negative)
[2024-11-27] MEDS: LIDOCAINE 1% W/EPI 1:100,000 20ML VIAL 10 ML IJ (10:18)
[2024-11-27] MEDS: ONDANSETRON 4MG/2ML VIAL 4 MG IV (10:18)
[2024-11-27 10:20] LABS: Hepatitis C Ab Qual. W/ RFX REACTIVE (Negative)
[2024-11-27] MEDS: KETAMINE 50MG/1ML SYRINGE 20 MG IV (10:22)
--- NOTE | 2024-11-27 10:30 | XR_ITS ---
FINAL REPORT CLINICAL HISTORY: post reduction/splint placement COMPARISON: 2 hours prior FINDINGS: Two views of the right ankle were obtained. There has been interval placement of a plaster cast. There is persistent dorsal dislocation. The fractures remain moderately displaced with minimal improvement. IMPRESSION: Interval application of plaster cast without significant change in displacement/dislocation. Reviewed, Interpreted and Dictated by Spring Leblanc MD Transcribed by Rachael Tovar Authenticated and . [facility]
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
--- NOTE | 2024-11-27 11:32 | PC.NURSE ---
Called report to Vivien Guillory Charge Nurse.
[2024-11-27] MEDS: OXYCODONE 5MG IMMEDIATE RELEASE TABLET 10 MG PO (11:40)
== END 2024-11-27 12:00 | disposition short-term general hospital (02) ==
PROVIDERS: Emergency Provider Student in an Organized Health Care Education/Training Program; PCP Nurse Practitioner Family
DX: M25.571 Pain in right ankle and joints of right foot (principal); S82.851A Displaced trimalleolar fracture of right lower leg, initial encounter for closed fracture; W00.0XXA Fall on same level due to ice and snow, initial encounter; Y93.89 Activity, other specified; Y92.89 Other specified places as the place of occurrence of the external cause
CPT/HCPCS: 27840; 73562; 73590; 73600; 73610; 73620; 86803; 87389; 87522; 96374; 96375; 99284; J1171; J2405

== ENCOUNTER 2025-02-22 15:53 | Outpatient (RCR) | payer BC, SELFPAY | END 2025-02-22 23:59 | disposition home or self-care (01) | LOC: PT 15:53 | PROVIDERS: Visit Provider Student in an Organized Health Care Education/Training Program | DX: S82.851A Displaced trimalleolar fracture of right lower leg, initial encounter for closed fracture (principal) | CPT/HCPCS: 97163 ==

== ENCOUNTER 2025-03-16 16:00 | Outpatient (RCR) | payer BC, SELFPAY | END 2025-03-16 23:59 | disposition home or self-care (01) | LOC: PT 16:00 | PROVIDERS: Visit Provider Student in an Organized Health Care Education/Training Program | DX: S82.851A Displaced trimalleolar fracture of right lower leg, initial encounter for closed fracture (principal) | CPT/HCPCS: 97110; 97112; 97116; 97530 ==

== ENCOUNTER 2025-10-21 14:10 | Outpatient (CLI) | payer BC, SELFPAY ==
[2025-10-21 20:15] LABS: Coronavirus 19, PCR Not Detected (NotDetected); Influenza A, PCR Not Detected (NotDetected); Influenza B, PCR Not Detected (NotDetected)
== END 2025-10-21 23:59 | disposition home or self-care (01) ==
LOC: LAB.DROPOF 10-22 12:45
PROVIDERS: PCP Nurse Practitioner Family; Visit Provider Nurse Practitioner
DX: J06.9 Acute upper respiratory infection, unspecified (principal)
CPT/HCPCS: 87631